=== PATIENT | female | born 2000 ===

== ENCOUNTER → 2021-09-24 | Outpatient (CLI) | payer OTHER ==
[2021-09-24 17:38] LABS: Source, Urine Clean Catch
[2021-09-24 19:30] LABS: Amorphous Heavy (0-Heavy)
[2021-09-24 19:31] LABS: Calcium Oxalate Crystals Few /hpf
[2021-09-24 19:32] LABS: Bacteria Few /hpf; Red Blood Cells, Urine 0-2 /hpf (0-2); Squamous Epithelial Cells Few /hpf (Few)
[2021-09-24 19:45] LABS: U Amphetamine Screen Not Detected; U Barbituate Screen Not Detected; U Benzodiazapine Screen Not Detected; U Cannabinoids Screen DETECTED; U Cocaine Screen Not Detected; U Methadone Screen Not Detected; U Methamphetamine Screen Not Detected
[2021-09-24 19:46] LABS: U Buprenorphine Screen Not Detected; U Opiates Screen Not Detected; U Oxycodone Screen Not Detected; U Phencyclidine Screen Not Detected; U Propoxyphene Screen Not Detected
== END | disposition home or self-care (01) ==
LOC: LAB SHORT 12:00
PROVIDERS: Advanced Practice Midwife
DX: Z34.81 Encounter for supervision of other normal pregnancy, first trimester (principal)
CPT/HCPCS: 81015; 87086

== ENCOUNTER → 2021-10-01 | Outpatient (CLI) | payer OTHER ==
[2021-10-02 10:02] LABS: Candida species (DNA Probe) Negative (NEGATIVE); G. vaginalis (DNA Probe) Positive (NEGATIVE); T. vaginalis (DNA Probe) Negative (NEGATIVE)
[2021-10-05 15:08] LABS: CHLAMYDIA TRACHOMATIS, NAA Negative (Negative)
== END | disposition home or self-care (01) ==
LOC: LAB SHORT 18:48
PROVIDERS: Advanced Practice Midwife
DX: Z01.419 Encounter for gynecological examination (general) (routine) without abnormal findings (principal); Z11.3 Encounter for screening for infections with a predominantly sexual mode of transmission; N89.8 Other specified noninflammatory disorders of vagina
CPT/HCPCS: 87480; 87510; 87660